=== PATIENT | male | born 1980 | race Caucasian/White ===

== ENCOUNTER 2024-10-09 16:04 | Emergency (ER) | payer OTHER ==
[2024-10-09] MEDS: Take Home: Amoxicillin 875 MG Tab, 2 Tab Pack PO ONE (16:40)
[2024-10-09] MEDS: Take Home: traMADol 50 MG, 4 Tab Pack PO ONE (16:40)
== END 2024-10-09 16:48 | disposition home or self-care (01) ==
LOC: VM.ED 16:04
DX: K04.7 Periapical abscess without sinus (principal); F17.210 Nicotine dependence, cigarettes, uncomplicated; Z79.899 Other long term (current) drug therapy
CPT/HCPCS: 99282; A9270; 99283

== ENCOUNTER 2025-05-30 08:36 | Emergency (ER) | payer OTHER | END 2025-05-30 09:08 | disposition home or self-care (01) | LOC: VM.ED 08:36 | DX: R55 Syncope and collapse (principal); F17.200 Nicotine dependence, unspecified, uncomplicated | CPT/HCPCS: 93005; 93010; 99284 ==